=== PATIENT | male | born 1995 ===

== ENCOUNTER 2020-08-20 11:58 | Emergency (ER) | payer SELFPAY ==
[~2020-08-20] VITALS: Ht 165 cm; Wt 65.0 kg
[2020-08-20 13:07] LABS: BASO % 0.2 % (0.0-2.0); GRAN # 7.6 (1.4-6.5); LYMPH # 1.2 (1.2-3.4); LYMPH % 11.8 % (20.0-51.0); MEAN CELL VOLUME 90 fl (80.0-100.0); MEAN CORPUSCULAR HGB CONC 34 g/dl (33.0-37.0); MEAN PLATELET VOLUME 10.7 fl (7.4-10.4); MONO # 1.1 (0.1-0.6); MONO % 10.7 % (1.7-9.3); PLATELET COUNT 298 K/mm3 (130-400); RED BLOOD COUNT 6.04 M/mm3 (4.20-5.60)
[2020-08-20 13:11] LABS: HEMATOCRIT 54.4 % (42.0-52.0); HEMOGLOBIN 18.6 g/dl (13.5-18.0); MEAN CORPUSCULAR HEMOGLOBIN 31 pg (27.0-31.0)
[2020-08-20 13:58] LABS: BILIRUBIN,TOTAL 0.8 mg/dL (0.0-1.0); CALCIUM 9.2 mg/dL (8.4-10.2); CREATININE, serum 0.98 (0.66-1.25); POTASSIUM 3.6 mmol/L (3.4-5.0); TOTAL PROTEIN 8.7 gm/dL (6.4-8.2)
[2020-08-20] MEDS ORDERED: ZOFRAN ODT4 MG PO (15:33)
[2020-08-20 15:35] VITALS: BP 126/64; PULSE 70; TEMP 97.6
== END 2020-08-20 15:56 | disposition home or self-care (01) ==
LOC: COL.ER 11:58
PROVIDERS: Family Medicine; Nurse Practitioner Primary Care
DX: U07.1 COVID-19 (principal)
CPT/HCPCS: J2405; J2550; J7030

== ENCOUNTER → 2020-08-23 | Emergency (ER) | payer SELFPAY ==
[~2020-08-23] MED LIST: ZOFRAN ODT4 MG PO
== END ==
LOC: COL.ER 14:33
DX: R69 Illness, unspecified (principal)

== ENCOUNTER 2020-08-26 00:17 | Emergency (ER) | payer SELFPAY ==
[~2020-08-26] VITALS: Ht 170.2 cm; Wt 67.0 kg
[2020-08-26 00:55] VITALS: TEMP 98.1
[2020-08-26 04:33] LABS: MEAN CELL VOLUME 93 fl (80.0-100.0); MEAN CORPUSCULAR HGB CONC 33 g/dl (33.0-37.0); MEAN PLATELET VOLUME 11.8 fl (7.4-10.4); PLATELET COUNT 258 K/mm3 (130-400); RED BLOOD COUNT 7.16 M/mm3 (4.20-5.60); REDCELL DISTRIBUTION WIDTH-CV 12.4 % (11.5-14.5)
[2020-08-26 04:41] LABS: ALBUMIN 5.4 gm/dL (3.5-5.0); BILIRUBIN,TOTAL 2.3 mg/dL (0.0-1.0); CREATININE, serum 2.17 (0.66-1.25); POTASSIUM 3.6 mmol/L (3.4-5.0); TOTAL PROTEIN 10.7 gm/dL (6.4-8.2)
[2020-08-26 04:47] LABS: HEMATOCRIT 66.4 % (42.0-52.0); MEAN CORPUSCULAR HEMOGLOBIN 31 pg (27.0-31.0)
[2020-08-26 04:48] LABS: HEMOGLOBIN 22.1 g/dl (13.5-18.0)
[2020-08-26 04:50] LABS: BAND 2 % (0-10); LYMPHOCYTE 17 % (20.0-51.0); NEUTROPHILS 66 % (42.0-75.2); PLATELET ESTIMATE NORMAL (NORMAL)
[2020-08-26 08:57] VITALS: BP 137/88; PULSE 87
== END 2020-08-26 08:57 | disposition short-term general hospital (02) ==
LOC: COL.ER 00:17
PROVIDERS: Emergency Medicine Emergency Medical Services
DX: U07.1 COVID-19 (principal); K72.90 Hepatic failure, unspecified without coma; N19 Unspecified kidney failure
CPT/HCPCS: J2270; J2405; J2550; J7030

== ENCOUNTER 2020-11-11 11:33 | Emergency (ER) | payer SELFPAY ==
[~2020-11-11] VITALS: Ht 167.6 cm; Wt 68.0 kg
[2020-11-11 11:45] VITALS: TEMP 99.4
[2020-11-11 12:31] LABS: BASO % 0.2 % (0.0-2.0); GRAN # 15.9 (1.4-6.5); GRAN % 80.7 % (42.2-75.2); LYMPH # 2.4 (1.2-3.4); LYMPH % 12.2 % (20.0-51.0); MEAN CELL VOLUME 89 fl (80.0-100.0); MEAN CORPUSCULAR HGB CONC 35 g/dl (33.0-37.0); MEAN PLATELET VOLUME 9.7 fl (7.4-10.4); MONO # 1.3 (0.1-0.6); MONO % 6.5 % (1.7-9.3); PLATELET COUNT 359 K/mm3 (130-400); RED BLOOD COUNT 6.24 M/mm3 (4.20-5.60); REDCELL DISTRIBUTION WIDTH-CV 12.1 % (11.5-14.5)
[2020-11-11 12:34] LABS: HEMATOCRIT 55.5 % (42.0-52.0); HEMOGLOBIN 19.6 g/dl (13.5-18.0); MEAN CORPUSCULAR HEMOGLOBIN 31 pg (27.0-31.0)
[2020-11-11 12:47] LABS: ALANINE AMINOTRANSFERASE 35 U/L (0-55); ALBUMIN 5.7 gm/dL (3.5-5.0); ALKALINE PHOSPHATASE 94 U/L (0-750); ANION GAP 19 mmol/L (7-16); AST,SGOT 29 U/L (5-34); BILIRUBIN,TOTAL 1.2 mg/dL (0.2-1.2); BLOOD UREA NITROGEN 36 mg/dL (9-21); CALCIUM 10.5 mg/dL (8.4-10.2); CARBON DIOXIDE 30 mmol/L (22-29); CHLORIDE 94 mmol/L (98-107); CREATININE, serum 1.47 mg/dL (0.72-1.25); GLUCOSE 135 mg/dL (70-99); LIPASE 28 U/L (8-78); SODIUM 143 mmol/L (136-145); TOTAL PROTEIN 9.7 gm/dL (6.2-8.1)
[2020-11-11 12:51] LABS: ALCOHOL(ethanol),MEDICAL < 10 mg/dL (0-10); POTASSIUM 2.9 mmol/L (3.5-4.5)
[2020-11-11 13:08] LABS: COLLECTION METHOD CLEAN CATCH
[2020-11-11 13:17] LABS: MUCOUS Present /lpf; PH 6 (5-8); SQUAMOUS EPITHELIAL 0-2 /hpf; URINE APPEARANCE Hazy; URINE BACTERIA None Seen /hpf; URINE BILIRUBIN Negative (NEGATIVE); URINE BLOOD Negative (NEGATIVE); URINE COLOR Yellow; URINE GLUCOSE Negative (NEGATIVE); URINE KETONE 1+ (NEGATIVE); URINE LEUKOCYTE ESTERASE Negative (NEGATIVE); URINE NITRATE Negative (NEGATIVE); URINE PROTEIN(semi-quant) 2+ (NEGATIVE); URINE RBC 0-2 /hpf; URINE UROBILINOGEN Negative (NEGATIVE)
[2020-11-11 13:22] LABS: TRICYCLIC ANTIDEPRESS URINE NEGATIVE
[2020-11-12 04:58] VITALS: BP 128/70; PULSE 76
== END 2020-11-12 04:58 | disposition short-term general hospital (02) ==
LOC: COL.ER 11:33
PROVIDERS: Nurse Practitioner Primary Care
DX: N17.9 Acute kidney failure, unspecified (principal); E87.6 Hypokalemia; D72.829 Elevated white blood cell count, unspecified; J98.2 Interstitial emphysema; F17.210 Nicotine dependence, cigarettes, uncomplicated; Z20.822 Contact with and (suspected) exposure to COVID-19
CPT/HCPCS: J2405; J2543; J3370; J3480; J7030; J7050; Q9967

== ENCOUNTER 2021-01-06 18:40 | Emergency (ER) | payer SELFPAY ==
[~2021-01-06] VITALS: Ht 170.2 cm; Wt 65.0 kg
[2021-01-06 18:57] VITALS: TEMP 98.4
[2021-01-06 19:36] LABS: HEMATOCRIT 51.3 % (42.0-52.0); HEMOGLOBIN 17.8 g/dl (13.5-18.0); MEAN CELL VOLUME 88 fl (80.0-100.0); MEAN CORPUSCULAR HEMOGLOBIN 31 pg (27.0-31.0); MEAN CORPUSCULAR HGB CONC 35 g/dl (33.0-37.0); MEAN PLATELET VOLUME 10.3 fl (7.4-10.4); PLATELET COUNT 299 K/mm3 (130-400); RED BLOOD COUNT 5.84 M/mm3 (4.20-5.60); REDCELL DISTRIBUTION WIDTH-CV 11.6 % (11.5-14.5)
[2021-01-06 19:50] LABS: ALBUMIN 5.3 gm/dL (3.5-5.0); BILIRUBIN,TOTAL 0.5 mg/dL (0.2-1.2); CREATININE, serum 1.02 mg/dL (0.72-1.25); POTASSIUM 4.2 mmol/L (3.5-4.5); TOTAL PROTEIN 8.9 gm/dL (6.2-8.1)
[2021-01-06 20:42] LABS: BAND 7 % (0-10); LYMPHOCYTE 8 % (20.0-51.0); NEUTROPHILS 84 % (42.0-75.2); PLATELET ESTIMATE NORMAL (NORMAL)
[2021-01-06] MEDS ORDERED: ZOFRAN ODT4 MG PO (22:14)
[2021-01-06 22:21] VITALS: BP 152/92; PULSE 70
== END 2021-01-06 22:25 | disposition home or self-care (01) ==
LOC: COL.ER 18:40
PROVIDERS: Student in an Organized Health Care Education/Training Program
DX: R11.10 Vomiting, unspecified (principal); D72.829 Elevated white blood cell count, unspecified
CPT/HCPCS: J2405; Q9967

== ENCOUNTER 2021-01-10 16:43 | Emergency (ER) | payer SELFPAY ==
[~2021-01-10] VITALS: Ht 170.2 cm; Wt 72.7 kg
[2021-01-10 18:01] VITALS: TEMP 99.3
[2021-01-10 19:15] LABS: BASO # 0.1 K/mm3 (0.0-0.2); BASO % 0.4 % (0.0-2.0); EOS % 0.2 % (0-4.0); GRAN # 9.2 K/mm3 (1.4-6.5); GRAN % 69.3 % (42.2-75.2); LYMPH # 2.5 K/mm3 (1.2-3.4); MEAN CELL VOLUME 89 fl (80.0-100.0); MEAN CORPUSCULAR HGB CONC 34 g/dl (33.0-37.0); MEAN PLATELET VOLUME 10.2 fl (7.4-10.4); MONO # 1.4 K/mm3 (0.1-0.6); MONO % 10.8 % (1.7-9.3); PLATELET COUNT 294 K/mm3 (130-400); RED BLOOD COUNT 6.59 M/mm3 (4.20-5.60); REDCELL DISTRIBUTION WIDTH-CV 11.6 % (11.5-14.5)
[2021-01-10 19:16] LABS: HEMATOCRIT 58.3 % (42.0-52.0); MEAN CORPUSCULAR HEMOGLOBIN 30 pg (27.0-31.0)
[2021-01-10 19:32] LABS: ALBUMIN 5.8 gm/dL (3.5-5.0); BILIRUBIN,TOTAL 2.1 mg/dL (0.2-1.2); CALCIUM 10.3 mg/dL (8.4-10.2); CREATININE, serum 1.27 mg/dL (0.72-1.25); POTASSIUM 3.1 mmol/L (3.5-4.5); TOTAL PROTEIN 9.6 gm/dL (6.2-8.1)
[2021-01-10 21:06] LABS: MONOSCREEN POSITIVE
[2021-01-10] MEDS ORDERED: ZOFRAN ODT4 MG PO (21:48)
[2021-01-10 23:10] VITALS: BP 135/70; PULSE 68
== END 2021-01-10 23:10 | disposition home or self-care (01) ==
LOC: COL.ER 16:43
PROVIDERS: Physician Assistant
DX: B27.90 Infectious mononucleosis, unspecified without complication (principal); E87.6 Hypokalemia; E80.7 Disorder of bilirubin metabolism, unspecified; F17.210 Nicotine dependence, cigarettes, uncomplicated; Z20.822 Contact with and (suspected) exposure to COVID-19
CPT/HCPCS: J1885; J2405; J7030